=== PATIENT | female | born 1990 | race American Indian/Alaskan Native ===

== ENCOUNTER 2017-01-20 20:49 | Emergency (ER) | payer MEDICAID ==
[2017-01-20 21:53] VITALS: BP 121/83
[2017-01-21] MEDS ORDERED: TORADOL IM ONE (01:43)
[2017-01-21] MEDS ORDERED: ZOFRAN ODT PO ONE (01:43)
--- NOTE | 2017-01-21 01:48 | Emergency Department Report ---
ED ENT HPI - General Chief complaint: Dental/Oral Stated complaint: TOOTH PAIN Time Seen by Provider: 01/21/17 01:38 Source: patient Mode of arrival: Ambulatory Limitations: No Limitations - History of Present Illness Initial comments: Patient comes in the ER today with complaints of right upper dental pain since yesterday. Patient denies any injury. Patient states that she was seen here a couple months ago and has had a wisdom tooth pulled since then. Patient denies any fever but states that she has been swishing around a lot of salt water and taking some ibuprofen and thinks that's making her nauseous as well. Patient denies any abdominal pain. MD complaint: tooth pain - Related Data Previous Rx's Medication Instructions Recorded Last Taken Type Ondansetron [Zofran Odt] 4 mg PO Q8H PRN #12 tab.rapdis 09/29/16 Unknown Rx Amoxicillin 500 mg PO TID #30 capsule 01/21/17 Unknown Rx Ondansetron [Zofran Odt] 4 mg PO Q8HR PRN #15 tab.rapdis 01/21/17 Unknown Rx traMADol [Ultram] 50 mg PO Q6HR PRN #20 tablet 01/21/17 Unknown Rx Allergies Allergy/AdvReac Type Severity Reaction Status Date / Time No Known Allergies Allergy Unverified 03/16/16 06:24 ED Dental HPI - General Chief complaint: Dental/Oral Stated complaint: TOOTH PAIN Time Seen by Provider: 01/21/17 01:38 Source: patient Mode of arrival: Ambulatory Limitations: No Limitations - Related Data Previous Rx's Medication Instructions Recorded Last Taken Type Ondansetron [Zofran Odt] 4 mg PO Q8H PRN #12 tab.rapdis 09/29/16 Unknown Rx Amoxicillin 500 mg PO TID #30 capsule 01/21/17 Unknown Rx Ondansetron [Zofran Odt] 4 mg PO Q8HR PRN #15 tab.rapdis 01/21/17 Unknown Rx traMADol [Ultram] 50 mg PO Q6HR PRN #20 tablet 01/21/17 Unknown Rx Allergies Allergy/AdvReac Type Severity Reaction Status Date / Time No Known Allergies Allergy Unverified 03/16/16 06:24 ED Review of Systems ROS: Stated complaint: TOOTH PAIN Other details as noted in HPI Constitutional: denies: chills, fever Eyes: denies: eye pain, eye discharge, vision change ENT: dental pain. denies: ear pain, throat pain, epistaxis, congestion Respiratory: denies: cough, shortness of breath, wheezing Cardiovascular: denies: chest pain, palpitations Endocrine: no symptoms reported Gastrointestinal: nausea, vomiting. denies: abdominal pain, diarrhea Genitourinary: denies: urgency, dysuria, discharge Musculoskeletal: denies: back pain, joint swelling, arthralgia Skin: denies: rash, lesions Neurological: denies: headache, weakness, paresthesias Psychiatric: denies: anxiety, depression Hematological/Lymphatic: denies: easy bleeding, easy bruising ED Past Medical Hx - Past Medical History Previous Medical History?: No - Surgical History Past Surgical History?: Yes Additional Surgical History: [place] tooth 09/28/16 - Social History Smoking Status: Never Smoker Substance Use Type: None - Medications Home Medications: Home Medications Medication Instructions Recorded Confirmed Last Taken Type Ondansetron [Zofran Odt] 4 mg PO Q8H PRN #12 tab.rapdis 09/29/16 Unknown Rx Amoxicillin 500 mg PO TID #30 capsule 01/21/17 Unknown Rx Ondansetron [Zofran Odt] 4 mg PO Q8HR PRN #15 tab.rapdis 01/21/17 Unknown Rx traMADol [Ultram] 50 mg PO Q6HR PRN #20 tablet 01/21/17 Unknown Rx ED Physical Exam - General Limitations: No Limitations General appearance: alert, in no apparent distress - Head Head exam: Present: atraumatic, normocephalic, normal inspection - Eye Eye exam: Present: normal appearance. Absent: conjunctival injection, periorbital swelling, periorbital tenderness - ENT ENT exam: Present: mucous membranes moist, TM's normal bilaterally, normal external ear exam, other (mildly erythematous noted around the right upper posterior molar. No obvious abscess noted.) - Neck Neck exam: Present: normal inspection - Respiratory Respiratory exam: Present: normal lung sounds bilaterally. Absent: respiratory distress - Cardiovascular Cardiovascular Exam: Present: regular rate, normal rhythm. Absent: systolic murmur, diastolic murmur, rubs, gallop - GI/Abdominal GI/Abdominal exam: Present: soft, normal bowel sounds. Absent: distended, tenderness - Extremities Exam Extremities exam: Present: normal inspection - Back Exam Back exam: Present: normal inspection - Neurological Exam Neurological exam: Present: alert, oriented X3 - Psychiatric Psychiatric exam: Present: normal affect, normal mood - Skin Skin exam: Present: warm, dry, intact, normal color. Absent: rash ED Course Vital Signs 01/20/17 21:49 Temperature 98.0 F Pulse Rate 72 Respiratory 18 Rate Blood Pressure 121/83 O2 Sat by Pulse 100 Oximetry ED Medical Decision Making - Medical Decision Making Patient is nontoxic and hemodynamically stable. Patient was given Toradol 30 mg intramuscular for her dental pain as well as some Zofran ODT for her nausea. I will start patient on some antibiotics as well as some mild pain medications and patient is to follow up with her dentist. Patient is in agreement with treatment plan the patient is stable for discharge. Critical care attestation.: If time is entered above; I have spent that time in minutes in the direct care of this critically ill patient, excluding procedure time. ED Disposition Clinical Impression: Pain, dental, Nausea & vomiting Disposition: TO HOME OR SELFCARE Is pt being admited?: No Does the pt Need Aspirin: No Condition: Good Instructions: Dental Abscess (ED), Toothache (ED) Prescriptions: Amoxicillin 500 mg PO TID #30 capsule Ondansetron [Zofran Odt] 4 mg PO Q8HR PRN #15 tab.rapdis PRN Reason: Nausea traMADol [Ultram] 50 mg PO Q6HR PRN #20 tablet PRN Reason: Pain Referrals: PRIMARY CARE,MD [Primary Care Provider] - 3-5 Days [facility] [Outside] - 3-5 Days dentist, your [Other] - 3-5 Days Time of Disposition: 01:48
== END 2017-01-21 02:18 | disposition home or self-care (01) ==
LOC: ED 20:49
DX: K08.89 Other specified disorders of teeth and supporting structures (principal); R11.2 Nausea with vomiting, unspecified
CPT/HCPCS: 96372; 99282; J1885; Q0162

== ENCOUNTER 2017-02-28 17:15 | Emergency (ER) | payer MEDICAID ==
--- NOTE | 2017-02-28 18:54 | Emergency Department Report ---
ED ENT HPI - General Chief complaint: Dental/Oral Stated complaint: TOOTHACHE Time Seen by Provider: 02/28/17 18:54 Source: patient Mode of arrival: Ambulatory Limitations: No Limitations - History of Present Illness Initial comments: PT c/o R upper toothache since this morning. PT states 2-3 teeth are hurting. PT states she took 2 OTC Tylenol pills on an empty stomach. PT states she feels nauseated. MD complaint: tooth pain -: Gradual, hour(s) Severity: severe Severity scale (0 -10): 10 Quality: stabbing Consistency: constant Improves with: none (no relief with OTC Tylenol ) Worsens with: eating Context- Dental: poor dental care (last Dental visit 2 weeks ago, pt was told she needs 2 teeth pulled, but pt has not followed up ) Associated Symptoms: toothache. denies: fever, pain with swallowing, sore throat - Related Data Previous Rx's Medication Instructions Recorded Last Taken Type Ondansetron [Zofran Odt] 4 mg PO Q8H PRN #12 tab.skylardis 09/29/16 Unknown Rx Amoxicillin 500 mg PO TID #30 capsule 01/21/17 Unknown Rx Ondansetron [Zofran Odt] 4 mg PO Q8HR PRN #15 tab.rapdis 01/21/17 Unknown Rx traMADol [Ultram] 50 mg PO Q6HR PRN #20 tablet 01/21/17 Unknown Rx Allergies Allergy/AdvReac Type Severity Reaction Status Date / Time No Known Allergies Allergy Unverified 03/16/16 06:24 ED Dental HPI - General Stated complaint: TOOTHACHE Time Seen by Provider: 02/28/17 18:54 - Related Data Previous Rx's Medication Instructions Recorded Last Taken Type Ondansetron [Zofran Odt] 4 mg PO Q8H PRN #12 tab.rapdis 09/29/16 Unknown Rx Amoxicillin 500 mg PO TID #30 capsule 01/21/17 Unknown Rx Ondansetron [Zofran Odt] 4 mg PO Q8HR PRN #15 tab.rapdis 01/21/17 Unknown Rx traMADol [Ultram] 50 mg PO Q6HR PRN #20 tablet 01/21/17 Unknown Rx Allergies Allergy/AdvReac Type Severity Reaction Status Date / Time No Known Allergies Allergy Unverified 03/16/16 06:24 ED Review of Systems ROS: Stated complaint: TOOTHACHE Other details as noted in HPI Comment: All other systems reviewed and negative Constitutional: denies: fever ENT: as per HPI, dental pain Gastrointestinal: nausea. denies: abdominal pain Genitourinary: denies: abnormal menses (lmp currently ) Neurological: headache ED Past Medical Hx - Past Medical History Hx Hypertension: No Hx Diabetes: No - Surgical History Additional Surgical History: [place] tooth 09/28/16 - Social History Smoking Status: Never Smoker Substance Use Type: None - Medications Home Medications: Home Medications Medication Instructions Recorded Confirmed Last Taken Type Ondansetron [Zofran Odt] 4 mg PO Q8H PRN #12 tab.rapdis 09/29/16 Unknown Rx Amoxicillin 500 mg PO TID #30 capsule 01/21/17 Unknown Rx Ondansetron [Zofran Odt] 4 mg PO Q8HR PRN #15 tab.rapdis 01/21/17 Unknown Rx traMADol [Ultram] 50 mg PO Q6HR PRN #20 tablet 01/21/17 Unknown Rx ED Physical Exam - General Limitations: No Limitations General appearance: alert, in no apparent distress - Head Head exam: Present: atraumatic, normocephalic, normal inspection - Eye Eye exam: Present: normal appearance, conjunctival injection - ENT ENT exam: Present: normal orophraynx, mucous membranes moist, normal external ear exam - Expanded ENT Exam Expanded Mouth exam: Present: normal external inspection. Absent: drooling, trismus Teeth exam: Present: dental tenderness # (teeth 2 and 3 with tenderness and fillings. multiple teeth with fillings.) Throat exam: Positive: tonsillar erythema. Negative: tonsillomegaly, tonsillar exudate, R peritonsillar mass, L peritonsillar mass - Neck Neck exam: Present: normal inspection, full ROM. Absent: tenderness, lymphadenopathy - Respiratory Respiratory exam: Present: normal lung sounds bilaterally. Absent: respiratory distress - Cardiovascular Cardiovascular Exam: Present: regular rate, normal rhythm, normal heart sounds - GI/Abdominal GI/Abdominal exam: Present: soft. Absent: distended, tenderness, guarding, rebound - Extremities Exam Extremities exam: Present: normal inspection, full ROM - Back Exam Back exam: Present: normal inspection, full ROM - Neurological Exam Neurological exam: Present: alert, oriented X3 - Psychiatric Psychiatric exam: Present: normal affect, normal mood - Skin Skin exam: Present: warm, dry, intact, normal color ED Course - Reevaluation(s) Reevaluation #1: 02/28/17 19:00 PT aware of dx and plan of care. - Pulse Oximetry Interpretation Digit-Finger Initial Pulse Oximetry Readin Actions Taken: none ED Medical Decision Making - Differential Diagnosis dental abscess, toothache Critical Care Time: No Critical care attestation.: If time is entered above; I have spent that time in minutes in the direct care of this critically ill patient, excluding procedure time. ED Disposition Clinical Impression: Tooth ache, Nausea Disposition: TO HOME OR SELFCARE Is pt being admited?: No Does the pt Need Aspirin: No Condition: Stable Instructions: Dental Abscess (ED), Dental Caries (ED), Toothache (ED) Additional Instructions: Follow up with Dentist in 2-3 days Take all of your Amoxil do not drive or drink alcohol if you need to take Tylenol #3 to control your pain Referrals: ANGELA DEAN MD [Staff Physician] - 3-5 Days [facility] [Outside] - 3-5 Days [facility] [Outside] - 3-5 Days [facility] [Outside] - 3-5 Days Time of Disposition: 19:05
[2017-02-28 18:56] VITALS: BP 120/89
[2017-02-28] MEDS ORDERED: MOTRIN PO ONE (19:01)
[2017-02-28] MEDS ORDERED: ZOFRAN ODT PO ONE (19:07)
[2017-02-28] MEDS ORDERED: TRIMOX PO ONE (19:09)
[2017-02-28] MEDS ORDERED: TYLENOL #3 PO ONE (19:38)
== END 2017-02-28 19:45 | disposition home or self-care (01) ==
LOC: ED 17:15
DX: K08.89 Other specified disorders of teeth and supporting structures (principal); R11.0 Nausea
CPT/HCPCS: 99282; Q0162

== ENCOUNTER 2017-12-01 14:14 | Emergency (ER) | payer MEDICAID | END 2017-12-01 15:20 | disposition left against medical advice (07) | LOC: ED 14:14 | DX: R51 Headache (principal); Z53.21 Procedure and treatment not carried out due to patient leaving prior to being seen by health care provider ==